=== PATIENT | female | born 1940 | race Caucasian/White ===

== ENCOUNTER 2017-11-17 17:42 | Emergency (ER) | payer OTHER ==
[2017-11-17 17:54] VITALS: BMI 20.5
--- NOTE | 2017-11-17 18:39 | PDOC ---
History of Present Illness - General Chief Complaint: Shortness of Breath Stated Complaint: SOB AFTER HEARING DAUGHTER Time Seen by Provider: 11/17/17 18:32 History Source: Patient Exam Limitations: No Limitations - History of Present Illness Initial Comments: 11/17/17 18:33 76-year-old female oxygen dependent was brought in by son for evaluation. As per son desisted just here in the ER and was unsure how to tell his mother since he was afraid that she might overreact, faint or have difficulty breathing. Patient states she was wondering why she was brought to the emergency room with no complaints once the son told her the news she developed mild shortness of breath which she states was in result of her crying. Patient upon my arrival has no complaints including chest pain, shortness of breath, headache, hopelessness, weakness, dizziness. Timing/Duration: resolved prior to arrival Severity: mild Associated Symptoms: reports: shortness of breath (x 2-3 minutes) Past History - Travel Traveled outside of the country in the last 30 days: No - Past Medical History Allergies/Adverse Reactions: Allergies Allergy/AdvReac Type Severity Reaction Status Date / Time No Known Allergies Allergy Verified 11/17/17 17:52 Home Medications: Ambulatory Orders Albuterol Sulfate Inhaler - [Ventolin HFA Inhaler -] 1 - 2 inh PO QID #1 inhaler 08/01/14 Amlodipine Besylate [Norvasc -] 5 mg PO DAILY 08/01/14 Aspirin [ASA -] 81 mg PO DAILY 08/01/14 Docusate Sodium [Colace -] 100 mg PO BID 08/01/14 Duloxetine HCl 60 mg PO DAILY 08/01/14 Losartan Potassium 50 mg PO DAILY 08/01/14 Methylprednisolone [Medrol Dose Nikolay] 4 mg PO ASDIR #21 tablet 08/01/14 Sennosides [Senna -] 2 tab PO DAILY 08/01/14 Tiotropium [place] [Spiriva] 1 inh PO DAILY 08/01/14 Oxybutynin Chloride [Ditropan] 5 mg PO BID #30 tablet 12/14/14 Anemia: No Cancer: No Cardiac Disorders: No COPD: Yes DVT: No Dementia: No Disorders: Yes (overactive bladder) HTN: Yes Thyroid Disease: Yes (THYROIDECTOMY) - Surgical History Appendectomy: Yes - Immunization History Td Vaccination: Yes TDAP Vaccination: Yes Immunization Up to Date: No - Suicide/Smoking/Psychosocial Hx Smoking Status: No Smoking History: Never smoked Have you smoked in the past 12 months: Yes Number of Cigarettes Smoked Daily: 20 Cigars Per Day: 0 Information on smoking cessation initiated: No 'Breaking Loose' booklet given: 08/01/14 Hx Alcohol Use: No Drug/Substance Use Hx: No Substance Use Type: None Hx Substance Use Treatment: No Patient Lives Alone: No Lives with/in: son Review of Systems - Review of Systems Able to Perform ROS?: No Constitutional: No: Symptoms Reported HEENTM: No: Symptoms Reported Respiratory: No: Symptoms reported Cardiac (ROS): No: Symptoms Reported ABD/GI: No: Symptoms Reported : No: Symptoms Reported Musculoskeletal: No: Symptoms Reported Integumentary: No: Symptoms Reported Neurological: No: Symptoms reported Endocrine: No: Symptoms Reported Hematologic/Lymphatic: No: Symptoms Reported *Physical Exam - Vital Signs Last Vital Signs Temp Pulse Resp BP Pulse Ox 98.6 F 97 H 19 179/82 97 11/17/17 17:50 11/17/17 17:50 11/17/17 17:50 11/17/17 17:50 11/17/17 17:50 - Physical Exam General Appearance: Yes: Nourished, Appropriately Dressed. No: Apparent Distress Neck: positive: Supple Respiratory/Chest: positive: Lungs Clear, Normal Breath Sounds. negative: Respiratory Distress, Accessory Muscle Use, Labored Respiration, Rapid RR Cardiovascular: positive: Regular Rhythm, Regular Rate. negative: Murmur Gastrointestinal/Abdominal: positive: Soft. negative: Tenderness Extremity: positive: Normal Capillary Refill. negative: Pedal Edema Integumentary: positive: Normal Color, Warm, Moist Neurologic: positive: Motor Strength 5/5 (ambulatory) Medical Decision Making - Medical Decision Making 11/17/17 18:37 Patient here for evaluation after finding out her daughter . Patient states was brought to the ER to be given the news. Patient initially states had difficulty breathing secondary to crying but resolved within minutes patient is oxygen dependent satting at 97% on room air. Patient will be discharged home with the son whom she lives home with. *DC/Admit/Observation/Transfer Diagnosis at time of Disposition: Evaluation by medical service required - Discharge Dispostion Disposition: HOME Condition at time of disposition: Good - Referrals Referrals: Hayley Pena MD [Primary Care Provider] - - Patient Instructions Additional Instructions: Please utilize your resources including family friends and mosque to deal with your grief. If you develop any chest pain, shortness of breath, dizziness, weakness or decreased appetite you may return to the ED any given time. Otherwise follow up with her primary care physician. - Post Discharge Activity
[2017-11-17 19:36] VITALS: BP 166/79; PULSE 88; TEMP 98.3
== END 2017-11-17 19:36 | disposition home or self-care (01) ==
LOC: JER 17:42
DX: Z76.89 Persons encountering health services in other specified circumstances (principal)
CPT/HCPCS: 99282-25